=== PATIENT | female | born 2000 | race Caucasian/White ===

== ENCOUNTER 2023-04-06 10:32 | Emergency (ER) | payer SELFPAY ==
[2023-04-06 11:15] LABS: Bilirubin Negative (Negative); Blood, Urine Moderate (Negative); Clarity Slightly Cloudy (Clear); Glucose, Urine (Dipstick) Negative (Negative); Ketone, Urine Negative (Negative); Leukocyte Trace (Negative); Nitrite Negative (Negative); Protein, Urine (Dipstick) Trace mg/dL (Neg-Trace); Specific Gravity, Urine 1.025 (1.005-1.030); Urobilinogen 0.2 mg/dL (Less than 2); pH, Urine 6.5 (5.0-9.0)
[2023-04-06 11:16] LABS: Pregnancy Test - Urine (BHCG) Negative (Negative); Pregu Control Background? CLEAR/WHITE (CLR/WHITE); Pregu Control Bar Appear? YES (CONTROL BAR); Specific Gravity 1.025 (1.002-1.036)
[2023-04-06 11:25] LABS: Bacteria/HPF 1+ HPF (None Seen)
[2023-04-06] MEDS ORDERED: Sulfameth/Trimethoprim DS 800-160mg TAB ONE (11:36)
[2023-04-06] MEDS ORDERED: Ondansetron ODT 4 MG TAB ONE (11:36)
== END 2023-04-06 11:47 | disposition home or self-care (01) ==
LOC: NAV ERS 10:32
DX: N30.00 Acute cystitis without hematuria (principal); F17.200 Nicotine dependence, unspecified, uncomplicated
CPT/HCPCS: 81001; 81025; 87077; 87086; 87186; 99284; Q0162